=== PATIENT | female | born 1980 | race Caucasian/White ===

== ENCOUNTER 2021-03-20 02:07 | Emergency (ER) | payer MEDICAID ==
[~2021-03-20] VITALS: Ht 154.9 cm; Wt 79.0 kg
[2021-03-20 02:36] LABS: CLARITY URINE TURBID (CLEAR); COLOR URINE BLOODY (YELLOW); KETONES URINE 2+ (NEGATIVE); LEUKOCYTE ESTERASE URINE 3+ (NEGATIVE); NITRITE URINE POSITIVE (NEGATIVE); OCCULT BLOOD URINE 3+ (NEGATIVE); PROTEIN URINE 3+ (NEGATIVE); SPECIFIC GRAVITY URINE 1.026 (1.005-1.030)
[2021-03-20] MEDS ORDERED: KETOROLAC 30MG/ML VIAL IV STA (02:45)
[2021-03-20] MEDS ORDERED: CEFTRIAXONE 1 G PREMIX 50 ML IV ONE (03:00)
[2021-03-20 03:05] LABS: BASOPHILS % 0.6 % (0.0-2.0); EOSINOPHILS % 3.9 % (0.0-5.0); HEMATOCRIT. 37.8 % (36.0-48.0); HEMOGLOBIN. 12.9 g/dL (12.0-16.0); LYMPHOCYTES % 26.4 % (20.0-50.0); MEAN CORPUSCULAR HEMOGLOBIN 30.7 pg (28.0-32.0); MEAN CORPUSCULAR VOLUME 89.8 fL (81.0-99.0); MEAN PLATELET VOLUME 7.1 fl (7.4-10.4); MONOCYTES % 7.8 % (2.0-8.0); NEUTROPHILS % 61.3 % (40.0-76.0); PLATELET 317 x1000/uL (130-400); RED CELL DISTRIBUTION WIDTH 13.6 % (11.6-14.6)
[2021-03-20 03:10] LABS: CHLORIDE 109 mEq/L (98-107)
[2021-03-20 04:00] VITALS: BP 135/80
[2021-03-20] MEDS ORDERED: CEPH500T MT (05:18)
[2021-03-20] MEDS ORDERED: IBUP-2029 MT (05:18)
== END 2021-03-20 05:47 | disposition home or self-care (01) ==
LOC: ER 02:07
DX: N39.0 Urinary tract infection, site not specified (principal); R25.2 Cramp and spasm; R03.0 Elevated blood-pressure reading, without diagnosis of hypertension
CPT/HCPCS: 36415; 76830; 76856; 80053; 81003; 81025; 85025; 96365; 96375; 99284; J0696; J1885; Z7610